=== PATIENT | male | born 1950 | race Caucasian/White ===

== ENCOUNTER → 2017-07-07 13:24 | Outpatient (CLI) | payer BC, SELFPAY ==
--- NOTE | 2017-07-08 14:00 | LEAS ---
Arterial Study - Arterial Study Arterial Study: This is a 66-year-old male with bilateral lower extremity intermittent claudication. The patient also has a history of hypertension, hyperlipidemia, and coronary artery disease. He is brought to the noninvasive vascular laboratory at this time, with a history of peripheral arterial occlusive disease. Doppler signal assessment was used to evaluate the pulses at ankle level bilaterally. The posterior tibial and dorsalis pedis pulses were triphasic bilaterally. Segmental limb pressures were obtained bilaterally. The right low thigh pressure was measured at 202 mmHg. The right calf pressure was measured at 171 mmHg. The right ankle pressure, as determined by posterior tibial pulse, was measured at 148 mmHg. The right ankle pressure, as determined by dorsalis pedis pulse, was measured at 120 mmHg. The left low thigh pressure was measured at 200 mmHg. The left calf pressure was measured at 170 mmHg. The left ankle pressure, as determined by posterior tibial pulse, was measured at 161 mmHg. The left ankle pressure, as determined by dorsalis pedis pulse, was measured at 145 mmHg. Pulse-volume recordings were obtained bilaterally and segmentally. Waveform amplitudes appeared to be satisfactory at all levels bilaterally, including low thigh, calf, and ankle levels. Resting ankle-brachial indices were calculated bilaterally. The resting right ankle-brachial index was calculated to be 1.10. The resting left ankle-brachial index was calculated to be 1.19. The patient was exercised on a treadmill at 2 mph and a 5% incline for 5 minutes. Ankle pressures were then obtained at intervals following cessation of exercise. 1 minute following cessation of exercise, the right ankle pressure was measured at __ mmHg, and the left ankle pressure was measured at 164 mmHg. 3 minutes following cessation of exercise, the right ankle pressure was measured at 160 mmHg, and the left ankle pressure was measured at 157 mmHg. Impression: Based upon the findings of this resting and exercise noninvasive lower extremity study, there is no evidence of significant atherosclerotic peripheral arterial occlusive disease in the lower extremities bilaterally. Triphasic waveforms were noted in ankle level bilaterally. Resting ankle-brachial indices were bilaterally normal. Following a period of exercise, ankle pressures augmented bilaterally, which is a normal physiological response. In summary, this represents a normal resting and exercise noninvasive lower extremity
--- NOTE | 2017-07-08 14:05 | LEAS_ITS ---
Arterial Study - Arterial Study Arterial Study: This is a 66-year-old male with bilateral lower extremity intermittent claudication. The patient also has a history of hypertension, hyperlipidemia, and coronary artery disease. He is brought to the noninvasive vascular laboratory at this time, with a history of peripheral arterial occlusive disease. Doppler signal assessment was used to evaluate the pulses at ankle level bilaterally. The posterior tibial and dorsalis pedis pulses were triphasic bilaterally. Segmental limb pressures were obtained bilaterally. The right low thigh pressure was measured at 202 mmHg. The right calf pressure was measured at 171 mmHg. The right ankle pressure, as determined by posterior tibial pulse, was measured at 148 mmHg. The right ankle pressure, as determined by dorsalis pedis pulse, was measured at 120 mmHg. The left low thigh pressure was measured at 200 mmHg. The left calf pressure was measured at 170 mmHg. The left ankle pressure, as determined by posterior tibial pulse, was measured at 161 mmHg. The left ankle pressure, as determined by dorsalis pedis pulse, was measured at 145 mmHg. Pulse-volume recordings were obtained bilaterally and segmentally. Waveform amplitudes appeared to be satisfactory at all levels bilaterally, including low thigh, calf, and ankle levels. Resting ankle-brachial indices were calculated bilaterally. The resting right ankle-brachial index was calculated to be 1.10. The resting left ankle- brachial index was calculated to be 1.19. The patient was exercised on a treadmill at 2 mph and a 5% incline for 5 minutes. Ankle pressures were then obtained at intervals following cessation of exercise. 1 minute following cessation of exercise, the right ankle pressure was measured at __ mmHg, and the left ankle pressure was measured at 164 mmHg. 3 minutes following cessation of exercise, the right ankle pressure was measured at 160 mmHg, and the left ankle pressure was measured at 157 mmHg. Impression: Based upon the findings of this resting and exercise noninvasive lower extremity study, there is no evidence of significant atherosclerotic peripheral arterial occlusive disease in the lower extremities bilaterally. Triphasic waveforms were noted in ankle level bilaterally. Resting ankle- brachial indices were bilaterally normal. Following a period of exercise, ankle pressures augmented bilaterally, which is a normal physiological response. In summary, this represents a normal resting and exercise noninvasive lower extremity
== END ==
DX: I73.9 Peripheral vascular disease, unspecified (principal)
CPT/HCPCS: 93924

== ENCOUNTER 2017-08-27 11:08 | Inpatient (IN) | payer BC, SELFPAY ==
[2017-08-27] VITALS (12 sets, daily range): BP systolic 124–187; BP diastolic 57–95; PULSE 85–110; RESP 15–20; TEMP 36.6–36.8; O2SAT 95–98; BMI 39.2; BMI 38.3
--- NOTE | 2017-08-27 11:13 | NURSING ---
NO OLD EKGS
--- NOTE | 2017-08-27 11:28 | EKG12_ITS ---
Test Reason : CP Blood Pressure : / mmHG Vent. Rate : 103 BPM Atrial Rate : 103 BPM P-R Int : 158 ms QRS Dur : 102 ms QT Int : 372 ms P-R-T Axes : 054 -34 090 degrees QTc Int : 487 ms Sinus tachycardia Left axis deviation Voltage criteria for left ventricular hypertrophy Abnormal ECG Confirmed by PARK RIVERA, KILLIAN ([id number]), slot editor LARISSA MINOR ([id number] on 08/30/2017 1:28:48 PM Referred By: KAYLA Confirmed By:KILLIAN NICK MD
--- NOTE | 2017-08-27 11:35 | RAD_ITS ---
STUDY: X-RAY CHEST REASON FOR EXAM: Male, 66 years old. Chest pain. TECHNIQUE: AP upright portable view. COMPARISON: None. FINDINGS: Calcified granuloma in the right lung base. No suspicious pulmonary nodules or infiltrates. There is no demonstrated pleural abnormality. Normal size heart. Normal mediastinum and vandana. Normal visualized pulmonary arteries. Normal visualized aortic arch and descending thoracic aorta. Normal visualized thoracic spine. Normal visualized ribs, clavicles, and shoulders. There is no demonstrated abnormality of the visualized soft tissue structures of the upper abdomen. RAD/Chest 1 View (Portable) IMPRESSION: No acute cardiopulmonary pathology. Electronically Signed: Robert Gagnon MD at 11:59 EDT , Service support ,
[2017-08-27 11:39] LABS: Absolute Lymphocyte Count 2.18 X10^3/ul (0.83-4.51); Absolute Neutrophil Count 3.2 X10^3/uL (2.0-7.7); Basophil# 0.06 X10^3/uL; Basophil% 0.9 % (0-1); Eosinophil# 0.61 X10^3/uL; Hematocrit 46.3 % (40-54); Hemoglobin 16.6 g/dl (13.0-16.5); Lymphocyte # 2.18 X10^3/ul (4.0); Lymphocyte % 32.2 % (19-41); Mean Corp Hgb Conc 35.9 g/gl (32-36); Mean Corpuscular Hgb 29.6 pg (27.0-32.0); Mean Corpuscular Volume 82.7 fL (80-94); Mean Platelet Vol. 10.3 fl (6.2-12.0); Monocyte# 0.69 X10^3/uL; Monocyte% 10.2 % (0-10); Neutrophil # 3.19 X10^3/uL (2.7-7.7); Platelet Count 196 K/mm3 (150-450); RBC Distribution Width CV 14.9 % (11.6-14.6); RBC Distribution Width SD 44.7 fl (35.1-43.9); White Blood Count 6.8 K/mm3 (4.4-11.0)
[2017-08-27 11:45] LABS: POSITIVE COUNT NO; POSITIVE DIFFERENTIAL NO; POSITIVE MORPHOLOGY NO
[2017-08-27 11:48] LABS: Anion Gap 9 (5-15); BUN 26 mg/dL (7-18); BUN/Creat Ratio 13.6 RATIO (10-20); Calcium,Total 8.9 mg/dL (8.5-10.1); Chloride 101 mmol/L (98-107); Creatinine, Serum 1.91 mg/dL (0.70-1.30); EST Glomerular Filtration Rate 38 mL/min (>60); Est Glom Filt Rate - Afr Amer 46 mL/min (>60); Estimated Creatinine Clearance 39.07 ml/min; Glucose 275 mg/dL (74-106); Potassium 3.6 mmol/L (3.5-5.1); Sodium Level 138 mmol/L (136-145)
--- NOTE | 2017-08-27 12:35 | ED.VISSUMM ---
- ER Visit Summary Date of Service: 08/27/17 Chief Complaint: Chest tightness History of Present Illness: The patient is a 66 M with history of coronary disease, hypertension and hypercholesterolemia who presents with chest tightness. This occurred this morning after he sneezed. He states he has a tight sensation in the middle of his chest with radiation to his left upper extremity and tingling in his left hand that was associated with diaphoresis, nausea and dyspnea. He has significant angina in 2015 requiring single-vessel bypass surgery for a proximal LAD lesion at the bifurcation of the main into the LAD and circumflex. He reports a significant weight gain over the last 6 months. He is from [place]. 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 He states he does not do anything strenuous. states he has a history of GERD. He reports no prior episode of discomfort like this. The pain does not radiate through to his back. He denies fever, chills night sweats. Denies ocular, visual auditory symptoms. He denies headache, weakness, paresthesia, anesthesia motor weakness. He has no other complaints please see written note. Review of systems otherwise negative. Physical Examination: Blood pressure 187/95 heart rate 106. He is obese with a BMI of 39.2. Pupils equal round reactive. Extra muscles intact. Nares patent. Posterior pharynx without erythema x-ray. Next supple. Trachea midline. No carotid bruit. Heart is regular without murmur, gallop or rub. Lungs are clear to auscultation. Abdomen is prominent with normal bowel sounds. There is no pain to palpation. There is 1-2+ pitting edema of the lower extremity. He denies orthopnea or PND. Test Results: EKG reveals a sinus rhythm rate of [address]-T wave changes. Computer is reading voltage criteria for LVH. He does have a left axis and suspect left anterior fascicular block. Chest x-ray portable reveals no acute process. CBC is unremarkable. Her panels marked for creatinine 1.9 and glucose 275. After informing patient of his results he states his creatinine ranges between 1.61.9. He has seen a precision jig grinder. He has never been told his blood sugars was elevated. His first troponin with less than 3 hours of chest tightness is less than 0.02. Emergency Department Course and Treatment: Patient did take aspirin at home. He was given nitroglycerin with resolution of his chest tightness. Cardiac workup was undertaken to evaluate patient's chest discomfort in light of his history of coronary disease and description. Treatment Plan: Consent for release of records from [place] was obtained for prior EKG for comparison. Hospitalist was paged for inpatient care. And further testing. Disposition: PCU Impression: 1. Midsternal chest tightness 2. End-stage renal disease, stage III 3. Hyperglycemia in non-diabetic patient 4. History of coronary disease status post single-vessel bypass surgery 5. History of hypertension 6. History of hypercholesterolemia This note was generated with [employer] dictation software. It may contain incorrect words, spelling, and punctuation that were not noted in review of the chart prior to signing ED Disposition - Plan for ED Patient: Chief Complaint: Chest Pain Referrals: [facility] Doctor,Out of [Primary Care Provider] -
--- NOTE | 2017-08-27 12:42 | ED.DCSUM_ITS ---
- ER Visit Summary Date of Service: 08/27/17 Chief Complaint: Chest tightness History of Present Illness: The patient is a 66 M with history of coronary disease, hypertension and hypercholesterolemia who presents with chest tightness. This occurred this morning after he sneezed. He states he has a tight sensation in the middle of his chest with radiation to his left upper extremity and tingling in his left hand that was associated with diaphoresis, nausea and dyspnea. He has significant angina in 2015 requiring single-vessel bypass surgery for a proximal LAD lesion at the bifurcation of the main into the LAD and circumflex. He reports a significant weight gain over the last 6 months. 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 He states he does not do anything strenuous. states he has a history of GERD. He reports no prior episode of discomfort like this. The pain does not radiate through to his back. He denies fever, chills night sweats. Denies ocular, visual auditory symptoms. He denies headache, weakness, paresthesia, anesthesia motor weakness. He has no other complaints please see written note. Review of systems otherwise negative. Physical Examination: Blood pressure 187/95 heart rate 106. He is obese with a BMI of 39.2. Pupils equal round reactive. Extra muscles intact. Nares patent. Posterior pharynx without erythema x-ray. Next supple. Trachea midline. No carotid bruit. Heart is regular without murmur, gallop or rub. Lungs are clear to auscultation. Abdomen is prominent with normal bowel sounds. There is no pain to palpation. There is 1-2+ pitting edema of the lower extremity. He denies orthopnea or PND. Test Results: EKG reveals a sinus rhythm rate of [address]-T wave changes. Computer is reading voltage criteria for LVH. He does have a left axis and suspect left anterior fascicular block. Chest x-ray portable reveals no acute process. CBC is unremarkable. Her panels marked for creatinine 1.9 and glucose 275. After informing patient of his results he states his creatinine ranges between 1.61.9. He has seen a manager stone. He has never been told his blood sugars was elevated. His first troponin with less than 3 hours of chest tightness is less than 0.02. Emergency Department Course and Treatment: Patient did take aspirin at home. He was given nitroglycerin with resolution of his chest tightness. Cardiac workup was undertaken to evaluate patient's chest discomfort in light of his history of coronary disease and description. Treatment Plan: Consent for release of records from [place] was obtained for prior EKG for comparison. Hospitalist was paged for inpatient care. And further testing. Disposition: PCU Impression: 1. Midsternal chest tightness 2. End-stage renal disease, stage III 3. Hyperglycemia in non-diabetic patient 4. History of coronary disease status post single-vessel bypass surgery 5. History of hypertension 6. History of hypercholesterolemia This note was generated with [employer] dictation software. It may contain incorrect words, spelling, and punctuation that were not noted in review of the chart prior to signing ED Disposition - Plan for ED Patient: Chief Complaint: Chest Pain Referrals: [facility] Doctor,Out of [Primary Care Provider] -
--- NOTE | 2017-08-27 13:24 | NURSING ---
CALLED [facility] IN [place] FOR AN OLD EKG. TALKED TO DARRION.
--- NOTE | 2017-08-27 13:30 | PCM.HP.STD ---
Problem List (1) Chronic kidney disease Status: Chronic (2) CAD (coronary artery disease) Status: Chronic (3) HTN (hypertension) Status: Chronic (4) HLD (hyperlipidemia) Status: Chronic (5) GERD (gastroesophageal reflux disease) Status: Chronic History of Present Illness Date of Admission: 08/27/17 Chief Complaint: Chest pressure/tightness The patient is a 66 year old M who presents to the Emergency Room with complaints of chest tightness and pressure which has been intermittent for the past 2-3 days with an episode of increased pressure around 10am this morning. Patient states this morning his pain was a 9/10 and radiated down left arm. This occurred while he was in the car driving. He describes associated clammy and shortness of breath. Pain lasted approximately 1 minute. Patient denies increased pain with exertion. He states he is chronically short of breath both while at rest and with exertion. He states this initially began after his bypass surgery in 2014. He denies smoking history. 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 He has a past medical history of single-vessel bypass in 2015, hypertension, hyperlipidemia, GERD, chronic kidney disease stage III. Patient's pain is currently 4/10 and states it feels like a weight is on his chest. He follows with his single needle tufting machine operator in [place] and also sees nephrology. Past Medical History Past Medical History (Chronic Problems): Chronic Problems Chronic kidney disease (Chronic) CAD (coronary artery disease) (Chronic) HTN (hypertension) (Chronic) HLD (hyperlipidemia) (Chronic) GERD (gastroesophageal reflux disease) (Chronic) Allergies No Known Allergies Allergy (Verified 08/27/17 11:08) Home Medications: Ambulatory Orders Medication Instructions Recorded Aspirin [Aspirin, Baby] 81 mg PO DAILY@0800 08/27/17 Atorvastatin Calcium [Lipitor] 40 mg PO DAILY 08/27/17 Hydrochlorothiazide [Hctz] 25 mg PO DAILY 08/27/17 Metoprolol Tartrate [Lopressor 12.5 mg PO DAILY 08/27/17 (beta mina)] Omeprazole [Omeprazole] 40 mg PO DAILY 08/27/17 Surgical History: arthroscopy, knee - Left, - - Bypass, hemorrhoid surgery, cataract, elbow surgery Psychiatric History: No pertinent psych hx Lives: Spouse/ Significant Other Smoking Status: Never smoker Alcohol: None Drugs: None - *Family History Maternal History Items: No pertinent history - Alive and well. Paternal History Items: Cancer - colon Review of Systems Constitutional: Reports: Weight Change - Weight gain over the past few months.. Denies: Chills, Fever HEENT: Denies: Head Aches, Sinus Congestion, Sinus Drainage Cardiovascular: Reports: Edema - Mild BLLE. Denies: Chest Pressure, Chest Tightness, Palpitations, Syncope Respiratory: Reports: Shortness of Breath, Shortness of breath upon exertion. Denies: Cough, Sputum production, Wheezing Gastrointestinal: Denies: Abdominal Pain, Constipation, Diarrhea, Nausea, Vomiting Genitourinary: Denies: Dysuria Musculoskeletal: Denies: Joint Pain, Joint Tenderness Skin: Denies: Rash, Wounds Neurological: Denies: Numbness, Tingling, Focal weakness Psychiatric: Denies: Anxiety, Depression, Homicidal Ideations, Suicidal Ideations Hematologic/ Lymphatic: Denies: Easy Bruising, Easy Bleeding VTE Information - Inpt Only VTE Present on Admission: No VTE Mechan Device Prophylaxis: None VTE Pharm Prophylaxis ordered?: Yes - Physical Exam General: Alert, Oriented x3, Cooperative, No apparent distress HEENT: Atraumatic, PERRLA, EOMI, Normocephalic Neck: Supple, No JVD, Negative Carotid Bruits Lungs: Clear to auscultation, Diminished Cardiovascular: Regular rate, Regular Rhythm, Normal S1, Normal S2, No murmurs Abdomen: Bowel Sounds Present, Soft, Non Tender, Non-Distended, Obese Extremities: No clubbing, No cyanosis, Edema - BLLE, non-pitting Skin: No rashes, No breakdown Musculoskeletal: No Tenderness to Palpation of Joints or Extremities Neurological: Cranial nerves II-XII grossly intact, Neuro grossly intact Psych/Mental Status: Normal Affect, Appropriate Vital Signs Temp Pulse Resp BP Pulse Ox 98.3 F 96 15 148/93 H 96 08/27/17 11:09 08/27/17 13:02 08/27/17 13:02 08/27/17 13:02 08/27/17 12:53 Oxygen Delivery Method Room Air Weight: 120.3 kg Body Mass Index (BMI) 39.2 Laboratory Tests Past 24 Hrs 08/27/17 08/27/17 11:15 11:15 WBC 6.8 RBC 5.60 Hgb 16.6 H Hct 46.3 MCV 82.7 MCH 29.6 MCHC 35.9 RDW 14.9 H RDW Differential 44.7 H Plt Count 196 MPV 10.3 Immature Gran % (Auto) 0.700 Neut % (Auto) 47.0 Lymph % (Auto) 32.2 Morton % (Auto) 10.2 H Eos % (Auto) 9.0 H Baso % (Auto) 0.9 Absolute Neuts (auto) 3.2 Absolute Lymphs (auto) 2.18 Total Counted Not Reportable Sodium 138 Potassium 3.6 Chloride 101 Carbon Dioxide 28.0 Anion Gap 9 BUN 26 H Creatinine 1.91 H Estim Creat Clear Calc 39.07 Est GFR (MDRD) Af Amer 46 L Est GFR (MDRD) Non-Af 38 L BUN/Creatinine Ratio 13.6 Glucose 275 H Calcium 8.9 Troponin I < 0.02 Assessment/Plan 1. Chest pressure/chest tightness-EKG in ER with T wave inversion. Dr. Paz consulted. Trend enzymes. Gentle IVF overnight. Stress test ordered pending enzymes. Obtain echo. Morphine as needed for pain. Repeat EKG if new onset or increase in CP. 2. CAD s/p single vessel bypass 2014- continue asa, statin, beta mina. Follows with single needle tufting machine operator in [place]. 3. CKD stage III-baseline creatinine 1.6-1.9. Gently IVF. Trend BMP. 4. HTN- stable, continue current regimen. 5. HLD- continue statin. 6. Elevated glucose- Glucose on admission 275. HA1C pending. Nutrition/dietitian consult for diabetes education. Accuchek ACHS with SSI novolog. 7. GERD- continue PPI. DVT prophylaxis- Heparin SC This patient was seen by Dea Boyd NP-Gianluca under the supervision of Dr. Simpson.
--- NOTE | 2017-08-27 13:33 | NURSING ---
PATIENT GOES TO DR DOBSON, [facility] [phone] CLOSED TODAY
--- NOTE | 2017-08-27 13:40 | HP.PCM_ITS ---
Problem List (1) Chronic kidney disease Status: Chronic (2) CAD (coronary artery disease) Status: Chronic (3) HTN (hypertension) Status: Chronic (4) HLD (hyperlipidemia) Status: Chronic (5) GERD (gastroesophageal reflux disease) Status: Chronic History of Present Illness Date of Admission: 08/27/17 Chief Complaint: Chest pressure/tightness The patient is a 66 year old M who presents to the Emergency Room with complaints of chest tightness and pressure which has been intermittent for the past 2-3 days with an episode of increased pressure around 10am this morning. Patient states this morning his pain was a 9/10 and radiated down left arm. This occurred while he was in the car driving. He describes associated clammy and shortness of breath. Pain lasted approximately 1 minute. Patient denies increased pain with exertion. He states he is chronically short of breath both while at rest and with exertion. He states this initially began after his bypass surgery in 2014. He denies smoking history. 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 He has a past medical history of single-vessel bypass in 2015, hypertension, hyperlipidemia, GERD, chronic kidney disease stage III. Patient's pain is currently 4/10 and states it feels like a weight is on his chest. He follows with his networker in [place] and also sees nephrology. Past Medical History Past Medical History (Chronic Problems): Chronic Problems Chronic kidney disease (Chronic) CAD (coronary artery disease) (Chronic) HTN (hypertension) (Chronic) HLD (hyperlipidemia) (Chronic) GERD (gastroesophageal reflux disease) (Chronic) Allergies No Known Allergies Allergy (Verified 08/27/17 11:08) Home Medications: Ambulatory Orders Medication Instructions Recorded Aspirin [Aspirin, Baby] 81 mg PO DAILY@0800 08/27/17 Atorvastatin Calcium [Lipitor] 40 mg PO DAILY 08/27/17 Hydrochlorothiazide [Hctz] 25 mg PO DAILY 08/27/17 Metoprolol Tartrate [Lopressor 12.5 mg PO DAILY 08/27/17 (beta mina)] Omeprazole [Omeprazole] 40 mg PO DAILY 08/27/17 Surgical History: arthroscopy, knee - Left, - - Bypass, hemorrhoid surgery, cataract, elbow surgery Psychiatric History: No pertinent psych hx Lives: Spouse/ Significant Other Smoking Status: Never smoker Alcohol: None Drugs: None - *Family History Maternal History Items: No pertinent history - Alive and well. Paternal History Items: Cancer - colon Review of Systems Constitutional: Reports: Weight Change - Weight gain over the past few months.. Denies: Chills, Fever HEENT: Denies: Head Aches, Sinus Congestion, Sinus Drainage Cardiovascular: Reports: Edema - Mild BLLE. Denies: Chest Pressure, Chest Tightness, Palpitations, Syncope Respiratory: Reports: Shortness of Breath, Shortness of breath upon exertion. Denies: Cough, Sputum production, Wheezing Gastrointestinal: Denies: Abdominal Pain, Constipation, Diarrhea, Nausea, Vomiting Genitourinary: Denies: Dysuria Musculoskeletal: Denies: Joint Pain, Joint Tenderness Skin: Denies: Rash, Wounds Neurological: Denies: Numbness, Tingling, Focal weakness Psychiatric: Denies: Anxiety, Depression, Homicidal Ideations, Suicidal Ideations Hematologic/ Lymphatic: Denies: Easy Bruising, Easy Bleeding VTE Information - Inpt Only VTE Present on Admission: No VTE Mechan Device Prophylaxis: None VTE Pharm Prophylaxis ordered?: Yes - Physical Exam General: Alert, Oriented x3, Cooperative, No apparent distress HEENT: Atraumatic, PERRLA, EOMI, Normocephalic Neck: Supple, No JVD, Negative Carotid Bruits Lungs: Clear to auscultation, Diminished Cardiovascular: Regular rate, Regular Rhythm, Normal S1, Normal S2, No murmurs Abdomen: Bowel Sounds Present, Soft, Non Tender, Non-Distended, Obese Extremities: No clubbing, No cyanosis, Edema - BLLE, non-pitting Skin: No rashes, No breakdown Musculoskeletal: No Tenderness to Palpation of Joints or Extremities Neurological: Cranial nerves II-XII grossly intact, Neuro grossly intact Psych/Mental Status: Normal Affect, Appropriate Vital Signs Temp Pulse Resp BP Pulse Ox 98.3 F 96 15 148/93 H 96 08/27/17 11:09 08/27/17 13:02 08/27/17 13:02 08/27/17 13:02 08/27/17 12:53 Oxygen Delivery Method Room Air Weight: 120.3 kg Body Mass Index (BMI) 39.2 Laboratory Tests Past 24 Hrs 08/27/17 08/27/17 11:15 11:15 WBC 6.8 RBC 5.60 Hgb 16.6 H Hct 46.3 MCV 82.7 MCH 29.6 MCHC 35.9 RDW 14.9 H RDW Differential 44.7 H Plt Count 196 MPV 10.3 Immature Gran % (Auto) 0.700 Neut % (Auto) 47.0 Lymph % (Auto) 32.2 Richardson % (Auto) 10.2 H Eos % (Auto) 9.0 H Baso % (Auto) 0.9 Absolute Neuts (auto) 3.2 Absolute Lymphs (auto) 2.18 Total Counted Not Reportable Sodium 138 Potassium 3.6 Chloride 101 Carbon Dioxide 28.0 Anion Gap 9 BUN 26 H Creatinine 1.91 H Estim Creat Clear Calc 39.07 Est GFR (MDRD) Af Amer 46 L Est GFR (MDRD) Non-Af 38 L BUN/Creatinine Ratio 13.6 Glucose 275 H Calcium 8.9 Troponin I < 0.02 Assessment/Plan 1. Chest pressure/chest tightness-EKG in ER with T wave inversion. Dr. Paz consulted. Trend enzymes. Gentle IVF overnight. Stress test ordered pending enzymes. Obtain echo. Morphine as needed for pain. Repeat EKG if new onset or increase in CP. 2. CAD s/p single vessel bypass 2014- continue asa, statin, beta mina. Follows with networker in [place]. 3. CKD stage III-baseline creatinine 1.6-1.9. Gently IVF. Trend BMP. 4. HTN- stable, continue current regimen. 5. HLD- continue statin. 6. Elevated glucose- Glucose on admission 275. HA1C pending. Nutrition/ dietitian consult for diabetes education. Accuchek ACHS with SSI novolog. 7. GERD- continue PPI. DVT prophylaxis- Heparin SC This patient was seen by Dea Boyd NP-Gianluca under the supervision of Dr. Simpson.
--- NOTE | 2017-08-27 14:07 | ECHOCS_ITS ---
Reason For Study: CHEST PAIN Procedure This was a 2D Doppler, Color Flow transthoracic echocardiogram. The study was technically difficult. Due to body habitus. Contrast injection was performed. Exam performed portable in patient room. Left Ventricle Normal LV size. Left ventricular systolic function is normal. The estimated ejection fraction is 60 %. Transmitral diastolic flow velocities suggest mild (stage 1) diastolic dysfunction (reversed pattern). No regional wall motion abnormalities noted. Right Ventricle Normal RV size. Normal systolic function. Atria Normal left atrium. Normal right atrium. Mitral Valve Normal mitral valve. Tricuspid Valve Normal tricuspid valve. Mild (1+) tricuspid valve insufficiency. Pulmonary artery systolic pressure is 32 mmHg. Aortic Valve The aortic valve is not well visualized. Pulmonic Valve The pulmonic valve is not well visualized. Great Vessels Normal aortic root. The pulmonary artery is normal size. Normal inferior vena cava. Pericardium/Pleural No pericardial effusion. Medication Diluted definity 3.0ml given slow IV push to enhance endocardial definition. MMode/2D Measurements & Calculations LVIDd: 4.4 cm IVSd: 1.1 cm Ao root diam: 3.0 cm LVIDs: 2.7 cm LVPWd: 1.1 cm LA dimension: 4.3 cm FS: 38.5 % LAV(MOD-bp): 53.7 ml LAV(MOD-bp) Indexed: 23.1 ml/m2 LA A4 area: 19.5 cm2 LAV(MOD-sp2): 47.0 ml LAV(MOD-sp4): 61.5 ml Time Measurements MV dec time: 0.28 sec Doppler Measurements & Calculations MV E max joel: 74.9 cm/sec Lat Peak E' Joel: 9.8 cm/sec Med Peak E' Joel: 7.6 cm/sec MV A max joel: 96.3 cm/sec E/E' lat: 7.6 E/E' med: 9.8 MV E/A: 0.78 Ao V2 max: 124.1 cm/sec PA V2 max: 121.1 cm/sec TR max joel: 263.5 cm/sec Ao max P.2 mmHg TR max P.8 mmHg Interpretation Summary Normal LV size. Left ventricular systolic function is normal. The estimated ejection fraction is 60 %. Transmitral diastolic flow velocities suggest mild (stage 1) diastolic dysfunction (reversed pattern). Mild (1+) tricuspid valve insufficiency. Pulmonary artery systolic pressure is 32 mmHg. Contrast injection was performed. The study was technically limited. Ordering Physician: Viktor Simpson Referring Physician: SIMONE DODSON Performed By: Stacy Garcia RDCS, RVT
[2017-08-27] MEDS: 0.9% Normal Saline 1,000 ML 100 ML IV ×2 (14:30→22:21)
--- NOTE | 2017-08-27 15:44 | NURSING ---
Nutritional supplements not ordered even though prompted. Due to pt having weight gain since February and no loss of appetite
[2017-08-27 17:30] LABS: Bedside Glucose 218 mg/dL (70-110)
--- NOTE | 2017-08-27 18:38 | PCM.CONS.C ---
Reason for Consult Date of Consultation: 08/27/17 Reason for Consultation: Chest pressure. History of Present Illness: The patient is a 66 year old M who presents to the Emergency Room with complaints of chest tightness and pressure which has been intermittent for the past 2-3 days with an episode of increased pressure around 10am this morning. Patient states this morning his pain was a 9/10 and radiated down left arm. This occurred while he was in the car driving. He describes associated clammy and shortness of breath. Pain lasted approximately 1 minute. Patient denies increased pain with exertion. He states he is chronically short of breath both while at rest and with exertion. He states this initially began after his bypass surgery in 2014. He denies smoking history. 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 He has a past medical history of single-vessel bypass in 2014, hypertension, hyperlipidemia, GERD, chronic kidney disease stage III. It appears that his surgery was admitted CAB procedure. This was presumably with a left internal mammary artery to the left anterior descending artery. He was administered sublingual nitroglycerin as well as morphine in the emergency room and his pain has dissipated. His electric cardiogram in the emergency room had demonstrated T-wave inversions in lead I and aVL. Past Medical History Allergies/Adverse Reactions: Allergies No Known Allergies Allergy (Verified 08/27/17 11:08) Home Medications: Ambulatory Orders Medication Instructions Recorded Aspirin [Aspirin, Baby] 81 mg PO DAILY@0800 08/27/17 Atorvastatin Calcium [Lipitor] 40 mg PO DAILY 08/27/17 Hydrochlorothiazide [Hctz] 25 mg PO DAILY 08/27/17 Metoprolol Tartrate [Lopressor 12.5 mg PO BID 08/27/17 (beta mina)] Omeprazole [Omeprazole] 40 mg PO DAILY 08/27/17 Past Medical History (Chronic Problems): Chronic Problems Chronic kidney disease (Chronic) CAD (coronary artery disease) (Chronic) HTN (hypertension) (Chronic) HLD (hyperlipidemia) (Chronic) GERD (gastroesophageal reflux disease) (Chronic) Surgical History: arthroscopy, knee - Left, coronary bypass surgery, - - Bypass, hemorrhoid surgery, cataract, elbow surgery Psychiatric History: No pertinent psych hx - *Family History Maternal History Items: No pertinent history - Alive and well. Paternal History Items: Cancer - colon Lives: Spouse/ Significant Other Smoking Status: Never smoker Alcohol: None Drugs: None Review of Systems - Review of Systems General: Denies: Fever, Night Sweats, Fatigue Cardiovascular: Reports: Chest Discomfort at Rest, Chest Tightness, Shortness of Breath. Denies: Chest Discomfort, Orthopnea, PND, Peripheral Edema, Palpitations, Lightheadedness, Dizziness, Near Syncope, Syncope Respiratory: Denies: Cough, Sputum Production, Hemoptysis Gastrointestinal: Denies: Hematemesis, Hematochezia, Melena Genitourinary: Denies: Dysuria, Hematuria Skin: Denies: Rash Subjectve: Pleasant gentleman in no apparent distress. Objective: Vital Signs Temp Pulse Resp BP Pulse Ox 97.9 F 87 16 127/57 H 95 08/27/17 15:05 08/27/17 15:05 08/27/17 15:05 08/27/17 15:05 08/27/17 15:05 Oxygen Delivery Method Room Air Weight: 259 lb 7.745 oz Body Mass Index (BMI) 38.3 Intake and Output for Last 24 Hours 08/25/17 08/26/17 08/27/17 23:59 23:59 23:59 Intake Total 480 / 480 Balance 480 / 480 General: Awake, Alert, Oriented x 3, Obese HEENT: PERRL, EOMI, Sclera Non Icteric Neck: Supple, Good ROM, No Lymph Node Enlargement Lungs: Clear to auscultation Cardiovascular: Regular Rhythm, Normal S1, Normal S2, No Murmurs, No Rubs, No Gallops Vascular: No Carotid Bruits, Normal Femoral Pulses, Normal Radial Pulses, Normal Dorsalis Pedal Pulse, Normal Posterior Tibial Pulses Abdomen: Bowel Sounds Present, Soft, Non Tender, No HSM, No Organomegaly Extremities: No Cyanosis, No Clubbing, No edema Neurological: No Focal Motor or Sensory Deficit 08/27/17 16:23: Troponin I < 0.02 Rhythm: EKG: Normal sinus rhythm with T-wave inversion in 1 and aVL. ECHO: Preserved ejection fraction of 60% with stage I diastolic dysfunction. Assessment/Plan 1. Chest pain. He presents with chest discomfort which is concerning for angina. He does have risk factors of obesity previous coronary bypass surgery hypertension and with his size as well as his EKG changes at baseline I would prefer us to utilize any invasive approach rather than stress testing. My suspicion is that the false positivity to be high with stress testing. Approach using the left radial route will be considered. I have discussed the above with him and his they understand and agree to proceed. He will be started on clopidogrel 75 mg a day in addition to his beta-mina and high intensity statin and aspirin. 2. Hypertension He appears to have elevated blood pressure and my recommendation at this time would be to continue on his beta-mina. 3. Obesity and metabolic syndrome. He appears to have evidence of metabolic syndrome. Diet and exercise have been emphasized and he will also be continued on high intensity statin. Thank you for allowing me to participate in the care of your patient. Please don't hesitate to call if any issues arise
--- NOTE | 2017-08-27 18:54 | NURSING ---
Reviewed and agreed on all charting with Kevyn Garcia RN
[2017-08-27] MEDS: Clopidogrel Bisulfate 300 MG Tablet PO (22:14)
[2017-08-27 23:06] LABS: Bedside Glucose 194 mg/dL (70-110)
[2017-08-28] VITALS (12 sets, daily range): BP systolic 128–146; BP diastolic 72–82; PULSE 76–102; RESP 16–18; TEMP 36.5–36.9; O2SAT 95–98
[2017-08-28 07:05] LABS: Bedside Glucose 196 mg/dL (70-110)
[2017-08-28 08:01] LABS: Anion Gap 8 (5-15); BUN 23 mg/dL (7-18); BUN/Creat Ratio 13.5 RATIO (10-20); Calcium,Total 8.1 mg/dL (8.5-10.1); Chloride 105 mmol/L (98-107); Creatinine, Serum 1.71 mg/dL (0.70-1.30); EST Glomerular Filtration Rate 43 mL/min (>60); Est Glom Filt Rate - Afr Amer 52 mL/min (>60); Estimated Creatinine Clearance 43.64 ml/min; Glucose 182 mg/dL (74-106); Potassium 3.6 mmol/L (3.5-5.1); Sodium Level 139 mmol/L (136-145)
[2017-08-28] MEDS: Aspirin 81 MG TAB.CHEW PO (08:16)
[2017-08-28] MEDS: Pantoprazole Sodium 40 MG Tablet PO (08:20)
[2017-08-28] MEDS: Atorvastatin Calcium 40 MG Tablet PO (08:20)
[2017-08-28] MEDS: Clopidogrel Bisulfate 75 MG Tablet PO (08:20)
[2017-08-28] MEDS: 0.9% Normal Saline 1,000 ML 100 ML IV ×2 (08:21→18:49)
--- NOTE | 2017-08-28 08:44 | PN.CARD_ITS ---
Subjectve: Patient seen and evaluated Objective: Vital Signs Temp Pulse Resp BP Pulse Ox 97.7 F L 76 16 137/72 H 95 08/28/17 03:03 08/28/17 07:09 08/28/17 03:03 08/28/17 03:03 08/28/17 03:03 Oxygen Delivery Method Room Air Weight: 259 lb 7.745 oz Body Mass Index (BMI) 38.3 Intake and Output for Last 24 Hours 08/26/17 08/27/17 08/28/17 23:59 23:59 23:59 Intake Total 948 / 948 1463 / 1463 Balance 948 / 948 1463 / 1463 General: Awake, Alert, Oriented x 3 HEENT: PERRL, EOMI, Sclera Non Icteric Neck: Supple, Good ROM, No Lymph Node Enlargement Lungs: Clear to auscultation Cardiovascular: Regular Rhythm, Normal S1, Normal S2, No Murmurs, No Rubs, No Gallops Vascular: No Carotid Bruits, Normal Femoral Pulses, Normal Radial Pulses, Normal Dorsalis Pedal Pulse, Normal Posterior Tibial Pulses Abdomen: Bowel Sounds Present, Soft, Non Tender, No HSM, No Organomegaly Extremities: No Cyanosis, No Clubbing, No edema Neurological: No Focal Motor or Sensory Deficit 08/27/17 16:23: Troponin I < 0.02 08/27/17 19:41: Troponin I < 0.02 08/28/17 01:16: Troponin I < 0.02 08/28/17 07:25: Sodium 139, Potassium 3.6, Chloride 105, Carbon Dioxide 26.0, Anion Gap 8, BUN 23 H, Creatinine 1.71 H, Est GFR (MDRD) Af Amer 52 L, Est GFR ( MDRD) Non-Af 43 L, BUN/Creatinine Ratio 13.5, Glucose 182 H, Calcium 8.1 L Rhythm: EKG: ECHO: Stress Test: Cardiac Cath: PCI: CT Surgery: Holter monitor: EPS: PPM: CXR: Chest CT Scan: Medical Necessity - Tobacco Use Smoking Status: Never smoker Assessment/Plan 1. Chest pain. He presents with chest discomfort which is concerning for angina. He does have risk factors of obesity previous coronary bypass surgery hypertension and with his size as well as his EKG changes at baseline I would prefer us to utilize any invasive approach rather than stress testing. My suspicion is that the false positivity to be high with stress testing. Approach using the left radial route will be considered. I have discussed the above with him and his they understand and agree to proceed. He will be started on clopidogrel 75 mg a day in addition to his beta-mina and high intensity statin and aspirin. Doing well at this time. Will continue to hydrate and plan for cath Wednesday. 2. Hypertension He appears to have elevated blood pressure and my recommendation at this time would be to continue on his beta-mina. 3. Obesity and metabolic syndrome. He appears to have evidence of metabolic syndrome. Diet and exercise have been emphasized and he will also be continued on high intensity statin. Thank you for allowing me to participate in the care of your patient. Please don't hesitate to call if any issues arise
[2017-08-28 12:36] LABS: Bedside Glucose 236 mg/dL (70-110)
--- NOTE | 2017-08-28 13:23 | NURSING ---
pt upset due to misunderstood getting insulin coverage. pt was checked at 1101 and glucose level was 236 pt was covered with 4 units of insulin. pt tray came to room, pt called out to say needed sugar checked and insulin given, GOLD STAMPER called this nurse to advise pt requests. this nurse told GOLD STAMPER pt was already covered. this nurse rounded and pt very upset this nurse was not in to give insulin. this nurse explained to pt the blood sugar was already checked in the 11 o clock hour and insulin given and pt is okay to eat. pt still upset and refused lunch tray.
--- NOTE | 2017-08-28 15:07 | CASEMGMT ---
See attached ironworker. Met face to face with patient and his earlier this am. PCP name is Dr. Riccardo Landon. Has a kidney doctor: Dr. Conroy Cardiology: Dr. Bal. Lives in [place]. 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 Living in an in [place]. Denies any current needs and doesn't anticipate any at discharge. Instructed case management will remain available should any needs arise. Nilda Bar RN, CCM.
--- NOTE | 2017-08-28 15:09 | PN_ITS ---
Subjective: Patient seen and examined. Complains of intermittent chest burning sensation which is increased with deep breaths and coughing, sneezing. Denies shortness of breath. To undergo cardiac catheterization on Wednesday. Patient denies questions or concerns. - Physical Exam General: Alert, Oriented x3, Cooperative, No apparent distress HEENT: Atraumatic, PERRLA, EOMI, Normocephalic Neck: Supple, No JVD, Negative Carotid Bruits Lungs: Clear to auscultation, Diminished Cardiovascular: Regular rate, Regular Rhythm, Normal S1, Normal S2, No murmurs Abdomen: Bowel Sounds Present, Soft, Non Tender, Non-Distended, Obese Extremities: No clubbing, No cyanosis, Capillary Refill Less than 3 Seconds, Edema - BLLE nonpitting Skin: No rashes, No breakdown Musculoskeletal: No Tenderness to Palpation of Joints or Extremities Neurological: Cranial nerves II-XII grossly intact, Neuro grossly intact Psych/Mental Status: Normal Affect, Appropriate Vital Signs Temp Pulse Resp BP Pulse Ox 98.1 F 95 16 132/82 H 95 08/28/17 09:03 08/28/17 11:27 08/28/17 09:03 08/28/17 09:03 08/28/17 09:03 Oxygen Delivery Method Room Air Weight: 117.7 kg Body Mass Index (BMI) 38.3 Intake and Output for Last 24 Hours 08/26/17 08/27/17 08/28/17 23:59 23:59 23:59 Intake Total 948 / 948 3 / 1923 Balance 948 / 948 1922 / 192 Laboratory Tests Past 24 Hrs 08/27/17 08/27/17 08/28/17 16:23 19:41 01:16 Sodium Potassium Chloride Carbon Dioxide Anion Gap BUN Creatinine Estim Creat Clear Calc Est GFR (MDRD) Af Amer Est GFR (MDRD) Non-Af BUN/Creatinine Ratio Glucose Calcium Troponin I < 0.02 < 0.02 < 0.02 08/28/17 07:25 Sodium 139 Potassium 3.6 Chloride 105 Carbon Dioxide 26.0 Anion Gap 8 BUN 23 H Creatinine 1.71 H Estim Creat Clear Calc 43.64 Est GFR (MDRD) Af Amer 52 L Est GFR (MDRD) Non-Af 43 L BUN/Creatinine Ratio 13.5 Glucose 182 H Calcium 8.1 L Troponin I POC Glucose 08/28/17 08/28/17 08/27/17 10:59 06:51 22:11 POC Glucose 236 H 196 H 194 H 08/27/17 16:47 POC Glucose 218 H Medical Necessity - Tobacco Use Smoking Status: Never smoker Assessment/Plan 1. Chest pressure/chest tightness-EKG in ER with T wave inversion. Dr. Paz consulted. Troponin negative. Echo shows EF 60%, mild stage I diastolic dysfunction, mild tricuspid valve insufficiency, pulmonary artery systolic pressure 32 mmHg. Patient will undergo cardiac catheterization Wednesday, . Continue aspirin, statin, Plavix, beta-mina. Continue morphine and nitro as needed for chest pain. 2. CAD s/p single vessel bypass 2014- continue asa, statin, beta mina. Follows with associate marketing manager in [place]. 3. CKD stage III-baseline creatinine 1.6-1.9. Gently IVF. Trend BMP. Creatinine currently 1.7. No acute kidney injury. 4. HTN- stable, continue current regimen. 5. HLD- continue statin. 6. Elevated glucose- Glucose on admission 275. HA1C 8.0. Nutrition/dietitian consult for diabetes education. Accuchek ACHS with SSI novolog. Recommend patient be discharged on Jardiance 10 mg once daily with further adjustment as outpatient. 7. GERD- continue PPI. DVT prophylaxis- Heparin SC This patient was seen by MARISOL Santiago under the supervision of Dr. Simpson.
[2017-08-28 17:31] LABS: Bedside Glucose 143 mg/dL (70-110)
[2017-08-28] MEDS: Metoprolol Tartrate 25 MG Tablet 12.5 MG PO (21:03)
[2017-08-28] MEDS: Acetaminophen 325 MG Tablet 650 MG PO (21:11)
[2017-08-28 21:15] LABS: Bedside Glucose 177 mg/dL (70-110)
[2017-08-29] VITALS (14 sets, daily range): BP systolic 134–159; BP diastolic 74–82; PULSE 72–90; RESP 16–18; TEMP 36.2–36.8; O2SAT 95–98
[2017-08-29] MEDS: 0.9% Normal Saline 1,000 ML 100 ML IV ×3 (04:57→23:57)
[2017-08-29 06:51] LABS: Bedside Glucose 154 mg/dL (70-110)
[2017-08-29 08:19] LABS: Anion Gap 9 (5-15); BUN 23 mg/dL (7-18); BUN/Creat Ratio 15.1 RATIO (10-20); Calcium,Total 8.2 mg/dL (8.5-10.1); Chloride 107 mmol/L (98-107); Creatinine, Serum 1.52 mg/dL (0.70-1.30); EST Glomerular Filtration Rate 49 mL/min (>60); Est Glom Filt Rate - Afr Amer 60 mL/min (>60); Glucose 169 mg/dL (74-106); Potassium 3.7 mmol/L (3.5-5.1); Sodium Level 141 mmol/L (136-145)
[2017-08-29] MEDS: Atorvastatin Calcium 40 MG Tablet PO (08:25)
[2017-08-29] MEDS: Aspirin 81 MG TAB.CHEW PO (08:25)
[2017-08-29] MEDS: Metoprolol Tartrate 25 MG Tablet 12.5 MG PO ×2 (08:26→22:08)
[2017-08-29] MEDS: Pantoprazole Sodium 40 MG Tablet PO (08:26)
[2017-08-29] MEDS: Clopidogrel Bisulfate 75 MG Tablet PO (08:26)
[2017-08-29] MEDS: Empagliflozin 10 MG Tablet PO (09:33)
--- NOTE | 2017-08-29 10:02 | PN.CARD_ITS ---
Subjectve: Patient was seen and evaluated. Has had no complaints since admission. Continues to be hydrated. Objective: Vital Signs Temp Pulse Resp BP Pulse Ox 98.2 F 79 16 138/80 H 95 08/29/17 08:35 08/29/17 08:35 08/29/17 08:35 08/29/17 08:35 08/29/17 08:35 Oxygen Delivery Method Room Air Intake and Output for Last 24 Hours 08/27/17 08/28/17 08/29/17 23:59 23:59 23:59 Intake Total 2247 / 4170 615 / 615 Balance 2247 / 4170 615 / 615 General: Awake, Alert, Oriented x 3 HEENT: PERRL, EOMI, Sclera Non Icteric Neck: Supple, Good ROM, No Lymph Node Enlargement Lungs: Clear to auscultation Cardiovascular: Regular Rhythm, Normal S1, Normal S2, No Murmurs, No Rubs, No Gallops Vascular: No Carotid Bruits, Normal Femoral Pulses, Normal Radial Pulses, Normal Dorsalis Pedal Pulse, Normal Posterior Tibial Pulses Abdomen: Bowel Sounds Present, Soft, Non Tender, No HSM, No Organomegaly Extremities: No Cyanosis, No Clubbing, No edema Neurological: No Focal Motor or Sensory Deficit 08/29/17 06:05: Sodium 141, Potassium 3.7, Chloride 107, Carbon Dioxide 25.0, Anion Gap 9, BUN 23 H, Creatinine 1.52 H, Est GFR (MDRD) Af Amer 60, Est GFR ( MDRD) Non-Af 49 L, BUN/Creatinine Ratio 15.1, Glucose 169 H, Calcium 8.2 L Rhythm: EKG: ECHO: Stress Test: Cardiac Cath: PCI: CT Surgery: Holter monitor: EPS: PPM: CXR: Chest CT Scan: Medical Necessity - Tobacco Use Smoking Status: Never smoker Assessment/Plan 1. Chest pain. He presents with chest discomfort which is concerning for angina. He does have risk factors of obesity previous coronary bypass surgery hypertension and with his size as well as his EKG changes at baseline I would prefer us to utilize any invasive approach rather than stress testing. My suspicion is that the false positivity to be high with stress testing. Approach using the left radial route will be considered. I have discussed the above with him and his they understand and agree to proceed. He will be started on clopidogrel 75 mg a day in addition to his beta-mina and high intensity statin and aspirin. Doing well at this time. Will continue to hydrate and plan for cath Wednesday. 2. Hypertension He appears to have elevated blood pressure and my recommendation at this time would be to continue on his beta-mina. His blood pressure appears to be under much better control now. His creatinine has also improved with hydration. 3. Obesity and metabolic syndrome. He appears to have evidence of metabolic syndrome. Diet and exercise have been emphasized and he will also be continued on high intensity statin. Thank you for allowing me to participate in the care of your patient. Please don't hesitate to call if any issues arise
[2017-08-29 11:15] LABS: Bedside Glucose 198 mg/dL (70-110)
--- NOTE | 2017-08-29 15:02 | CASEMGMT ---
Insurance review for possible cardiac intervention. According the [facility] provider search the following facilities are in-network (not limited to these): [facility] For further information, contact case management.
--- NOTE | 2017-08-29 15:51 | PN_ITS ---
Subjective: Patient seen and examined. Denies further significant chest pain. Does complain of chest discomfort with cough. He states he has had a nonproductive cough for approximately 2 weeks which she feels is allergy related. Denies other complaints. Spent significant time with patient discussing diabetic education. - Physical Exam General: Alert, Oriented x3, Cooperative, No apparent distress HEENT: Atraumatic, PERRLA, EOMI, Normocephalic Neck: Supple, No JVD, Negative Carotid Bruits Lungs: Clear to auscultation, Normal air movement Cardiovascular: Regular rate, Regular Rhythm, Normal S1, Normal S2, No murmurs Abdomen: Bowel Sounds Present, Soft, Non Tender, Non-Distended, Obese Extremities: No clubbing, No cyanosis, No edema, Capillary Refill Less than 3 Seconds Skin: No rashes Musculoskeletal: No Tenderness to Palpation of Joints or Extremities Neurological: Cranial nerves II-XII grossly intact, Neuro grossly intact Psych/Mental Status: Normal Affect, Appropriate Vital Signs Temp Pulse Resp BP Pulse Ox 98.1 F 80 16 134/74 H 98 08/29/17 14:45 08/29/17 15:05 08/29/17 14:45 08/29/17 14:45 08/29/17 14:45 Oxygen Delivery Method Room Air Intake and Output for Last 24 Hours 08/27/17 08/28/17 08/29/17 23:59 23:59 23:59 Intake Total 2247 / 4170 1409 / 1409 Balance 2247 / 4170 1409 / 1409 Laboratory Tests Past 24 Hrs 08/29/17 06:05 Sodium 141 Potassium 3.7 Chloride 107 Carbon Dioxide 25.0 Anion Gap 9 BUN 23 H Creatinine 1.52 H Estim Creat Clear Calc 49.10 Est GFR (MDRD) Af Amer 60 Est GFR (MDRD) Non-Af 49 L BUN/Creatinine Ratio 15.1 Glucose 169 H Calcium 8.2 L POC Glucose 08/29/17 08/29/17 08/28/17 10:59 06:42 21:09 POC Glucose 198 H 154 H 177 H 08/28/17 16:38 POC Glucose 143 H Medical Necessity - Tobacco Use Smoking Status: Never smoker Assessment/Plan 1. Chest pressure/chest tightness-EKG in ER with T wave inversion. Dr. Paz consulted. Troponin negative. Echo shows EF 60%, mild stage I diastolic dysfunction, mild tricuspid valve insufficiency, pulmonary artery systolic pressure 32 mmHg. Patient will undergo cardiac catheterization Wednesday, . Continue aspirin, statin, Plavix, beta-mina. Continue morphine and nitro as needed for chest pain. 2. CAD s/p single vessel bypass 2014- continue asa, statin, beta mina. 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 3. CKD stage III-baseline creatinine 1.6-1.9. Gently IVF. Trend BMP. Creatinine currently 1.52. No acute kidney injury. 4. HTN- stable, continue current regimen. 5. HLD- continue statin. 6. Elevated glucose- Glucose on admission 275. HA1C 8.0. Nutrition/dietitian consult for diabetes education. Josh WADES with SSI novolog. Recommend patient be discharged on Jardiance 10 mg once daily with further adjustment as outpatient. He will also need discharged with glucose testing monitor and supplies. 7. GERD- continue PPI. DVT prophylaxis- Heparin SC This patient was seen by MARISOL Santiago under the supervision of Dr. Simpson.
[2017-08-29] MEDS: Acetaminophen 325 MG Tablet 650 MG PO (16:25)
[2017-08-29 16:26] LABS: Bedside Glucose 138 mg/dL (70-110)
[2017-08-29 22:30] LABS: Bedside Glucose 145 mg/dL (70-110)
[2017-08-30] VITALS (17 sets, daily range): BP systolic 102–151; BP diastolic 61–84; PULSE 62–77; RESP 16–20; TEMP 36.4–36.9; O2SAT 95–98
[2017-08-30 05:34] LABS: Absolute Lymphocyte Count 1.76 X10^3/ul (0.83-4.51); Absolute Neutrophil Count 3.3 X10^3/uL (2.0-7.7); Basophil# 0.05 X10^3/uL; Basophil% 0.8 % (0-1); Eosinophil# 0.52 X10^3/uL; Eosinophils% 8.5 % (0-5); Hematocrit 45.2 % (40-54); Hemoglobin 15.5 g/dl (13.0-16.5); Lymphocyte # 1.76 X10^3/ul (4.0); Lymphocyte % 28.6 % (19-41); Mean Corp Hgb Conc 34.3 g/gl (32-36); Mean Corpuscular Volume 84.6 fL (80-94); Mean Platelet Vol. 9.8 fl (6.2-12.0); Monocyte# 0.51 X10^3/uL; Monocyte% 8.3 % (0-10); Neutrophil # 3.27 X10^3/uL (2.7-7.7); Neutrophil % 53.1 % (47-70); Platelet Count 134 K/mm3 (150-450); RBC Distribution Width CV 14.7 % (11.6-14.6); Red Blood Count 5.34 M/mm3 (4.6-6.2); White Blood Count 6.2 K/mm3 (4.4-11.0)
[2017-08-30] MEDS: Metoprolol Tartrate 25 MG Tablet 12.5 MG PO ×2 (05:38→09:28)
[2017-08-30] MEDS: Aspirin 81 MG TAB.CHEW PO (05:38)
[2017-08-30] MEDS: Clopidogrel Bisulfate 75 MG Tablet PO (05:38)
[2017-08-30 05:41] LABS: Anion Gap 10 (5-15); BUN 20 mg/dL (7-18); Calcium,Total 8.5 mg/dL (8.5-10.1); Chloride 107 mmol/L (98-107); Creatinine, Serum 1.66 mg/dL (0.70-1.30); EST Glomerular Filtration Rate 44 mL/min (>60); Est Glom Filt Rate - Afr Amer 54 mL/min (>60); Estimated Creatinine Clearance 44.96 ml/min; Glucose 138 mg/dL (74-106); POSITIVE COUNT NO; POSITIVE DIFFERENTIAL NO; POSITIVE MORPHOLOGY NO; Potassium 3.9 mmol/L (3.5-5.1); Sodium Level 141 mmol/L (136-145)
[2017-08-30 05:53] LABS: International Normalized Ratio 0.9; Prothrombin Time (Protime)PT. 12.6 SECONDS (11.7-14.9)
[2017-08-30 05:54] LABS: Partial Thromboplast Time 29.5 Seconds (24.1-36.2)
--- NOTE | 2017-08-30 05:55 | EKG12_ITS ---
Test Reason : AM EKG Blood Pressure : / mmHG Vent. Rate : 073 BPM Atrial Rate : 073 BPM P-R Int : 164 ms QRS Dur : 096 ms QT Int : 420 ms P-R-T Axes : 038 -22 047 degrees QTc Int : 462 ms Normal sinus rhythm Normal ECG When compared with ECG of 27-AUG-2017 11:10, MANUAL COMPARISON REQUIRED, DATA IS UNCONFIRMED Confirmed by PARK RIVERA, KILLIAN ([id number]), photo editor LARISSA MINOR ([id number]) on 08/31/2017 1:39:54 PM Referred By: SKYLAR Confirmed By:KILLIAN NICK MD
[2017-08-30 06:49] LABS: Bacteria 0 SEEN /hpf (None Seen); Mucous, Urine 0 SEEN /hpf (<or=2+); Red Blood Cells-Urine 0 SEEN /hpf (0-5); Squamous Epithelial Cells - UA 0 SEEN /hpf (0-5); White Blood Cells 0 SEEN /hpf (0-5)
[2017-08-30 06:50] LABS: Color, Urine Yellow (Yellow); Glucose, Dipstick 1000 mg/dl (Normal); Ketone-Dipstick Negative (Negative); Leukocyte Esterase-Dipstick Negative /ul (Negative); Nitrite-Dipstick Negative (Negative); Occult Blood-Urine Negative /ul (Negative); Protein-Dipstick Negative (Negative); Urine Bilirubin Dipstick Negative (Negative); Urine Clarity Clear (Clear); Urine Urobilinogen Normal (Normal); Urine pH 6.5 (5.0 - 8.0)
--- NOTE | 2017-08-30 06:56 | NURSING ---
report called to cardiovascular lab director. okay to send patient down.
[2017-08-30] MEDS: 0.9% Normal Saline 1,000 ML 100 ML IV (06:59)
[2017-08-30 07:05] LABS: Bedside Glucose 143 mg/dL (70-110)
--- NOTE | 2017-08-30 08:02 | PN.CARD_ITS ---
Subjectve: Patient seen and evaluated. He underwent cardiac catheterization today. Objective: Vital Signs Temp Pulse Resp BP Pulse Ox 97.9 F 72 18 151/84 H 97 08/30/17 05:32 08/30/17 06:59 08/30/17 05:32 08/30/17 05:38 08/30/17 05:32 Oxygen Delivery Method Room Air Intake and Output for Last 24 Hours 08/28/17 08/29/17 08/30/17 23:59 23:59 23:59 Intake Total 2247 / 4170 3349 / 3349 569 / 569 Balance 2247 / 4170 3349 / 3349 569 / 569 General: Awake, Alert, Oriented x 3 HEENT: PERRL, EOMI, Sclera Non Icteric Neck: Supple, Good ROM, No Lymph Node Enlargement Lungs: Clear to auscultation Cardiovascular: Regular Rhythm, Normal S1, Normal S2, No Murmurs, No Rubs, No Gallops Vascular: No Carotid Bruits, Normal Femoral Pulses, Normal Radial Pulses, Normal Dorsalis Pedal Pulse, Normal Posterior Tibial Pulses Abdomen: Bowel Sounds Present, Soft, Non Tender, No HSM, No Organomegaly Extremities: No Cyanosis, No Clubbing, No edema Neurological: No Focal Motor or Sensory Deficit 08/29/17 06:05: Sodium 141, Potassium 3.7, Chloride 107, Carbon Dioxide 25.0, Anion Gap 9, BUN 23 H, Creatinine 1.52 H, Est GFR (MDRD) Af Amer 60, Est GFR ( MDRD) Non-Af 49 L, BUN/Creatinine Ratio 15.1, Glucose 169 H, Calcium 8.2 L 08/30/17 05:10: Sodium 141, Potassium 3.9, Chloride 107, Carbon Dioxide 24.0, Anion Gap 10, BUN 20 H, Creatinine 1.66 H, Est GFR (MDRD) Af Amer 54 L, Est GFR (MDRD) Non-Af 44 L, BUN/Creatinine Ratio 12.0, Glucose 138 H, Calcium 8.5 08/30/17 05:10: WBC 6.2, RBC 5.34, Hgb 15.5, Hct 45.2, MCV 84.6, MCH 29.0, MCHC 34.3, RDW 14.7 H, RDW Differential 45.0 H, Plt Count 134 L, MPV 9.8, Immature Gran % (Auto) 0.700, Neut % (Auto) 53.1, Lymph % (Auto) 28.6, [place] % (Auto) 8.3 , Eos % (Auto) 8.5 H, Baso % (Auto) 0.8, Absolute Neuts (auto) 3.3, Total Counted Not Reportable 08/30/17 05:10: PT 12.6, INR 0.9, APTT 29.5 08/30/17 05:32: Urine Color Yellow, Urine Clarity Clear, Urine pH 6.5, Ur Specific [place] 1.010, Urine Protein Negative, Urine Glucose (UA) 1000 H, Urine Ketones Negative, Urine Occult Blood Negative, Urine Nitrite Negative, Urine Bilirubin Negative, Urine Urobilinogen Normal, Ur Leukocyte Esterase Negative, Urine RBC 0 SEEN, Urine WBC 0 SEEN Rhythm: EKG: ECHO: Stress Test: Cardiac Cath: PCI: CT Surgery: Holter monitor: EPS: PPM: CXR: Chest CT Scan: Medical Necessity - Tobacco Use Smoking Status: Never smoker Assessment/Plan 1. Chest pain. He presents with chest discomfort which is concerning for angina. He does have risk factors of obesity previous coronary bypass surgery hypertension and with his size as well as his EKG changes at baseline I would prefer us to utilize any invasive approach rather than stress testing. He underwent a cardiac catheterization this morning which demonstrated the following: Normal left main coronary artery. Left anterior descending artery with proximal 70% stenosis. Left circumflex artery with no significant disease. Dominant right coronary artery with no significant disease. Left internal mammary artery to the left anterior descending artery which is patent. It appears that he is well revascularized and therefore I would recommend continued aggressive medical therapy. He will be placed on beta-mina with metoprolol 25 mg twice a day as well as Norvasc 5 mg a day. 2. Hypertension He appears to have elevated blood pressure and my recommendation at this time would be to continue on his beta-mina. His blood pressure appears to be under much better control now. His creatinine has also improved with hydration. Also add Norvasc 5 mg a day. 3. Obesity and metabolic syndrome. He appears to have evidence of metabolic syndrome. Diet and exercise have been emphasized and he will also be continued on high intensity statin. Patient can be discharged later today. Thank you for allowing me to participate in the care of your patient. Please don't hesitate to call if any issues arise
--- NOTE | 2017-08-30 08:07 | CL.D_ITS ---
Patient Name: CORINNE RAGLAND Study Date: 08/30/2017 Performing: Jesús Paz MD Ht: 68.89 inches 175 cm : 1950 Wt: 260.15 lbs 118 kg Age: 66 Gender: male BSA: 2.31 PROCEDURE(S) PERFORMED [id number] CLINICAL PROFILE AND INDICATIONS INDICATIONS: 66-year-old man with a history of chest pain. Stress/Imaging Stress/Image Study Performed: No CAD Presentations: Unstable angina. CONCLUSIONS Single vessel coronary artery disease with proximal LAD and a patent left internal mammary artery to the left ant descending RECOMMENDATIONS Medical therapy DESCRIPTION OF PROCEDURE The patient arrived to the procedure lab. The risks and benefits of the procedure as well as a full d escription of our services here and current unavailability of surgical backup were fully explained to the patient and/or their significant other prior to the catheterization. The Timeout was completed, verifying the correct patient and procedure. The patient's procedural site was prepped and draped in the usual fashion. Local anesthetic was given subcutaneously to right groin region with Lidocaine 2%. Using a modified Seldinger technique, arterial access was obtained via the right femoral artery, a 5 Fr sheath was inserted. Left Coronary Artery selective angiography was performed in multiple views u sing a 5 Fr. JL 5 catheter. Right Coronary Artery selective angiography was then performed in multipl e views using a 5 Fr. 3DRC (Willard) catheter. Left internal mammary artery graft to the LAD selecti ve angiography was performed in multiple views using a 5 Fr. 3DRC (Willard) catheter. Left internal mammary artery graft to the LAD selective angiography was performed in multiple views using a 5 Fr. I M catheter.The arterial sheath was pulled and manual compression applied until hemostasis is achieved . CORONARY ANGIOGRAPHY DOMINANCE: Right Dominant LEFT HEART ASSESSMENT Left Ventricular Ejection Fraction: by Echo 60 % Normal LV wall motion Normal Left Ventricular systolic function LEFT MAIN: Angiographically normal LEFT ANTERIOR DECENDING ARTERY: PROX LAD: 70 % Stenosis CIRCUMFLEX ARTERY: Angiographically normal RIGHT CORONARY ARTERY: Angiographically normal GRAFTS: PARISI graft to the Mid LAD is patent COMPLICATIONS No Complications PROCEDURE MEDICATIONS Versed 1 mg IV Versed 1 mg IV Fentanyl 50 mcg IV Oxygen: 2 L/min via nasal cannula SUMMARY OF HEMODYNAMIC DATA Time AIR REST ECG 07:18:40 AO 150/81 (112) SA 07:42:00 Signed By Jesús Paz MD On 08/30/2017 08:06:38 Jesús Paz MD
--- NOTE | 2017-08-30 09:22 | CASEMGMT ---
According to [facility] website, the following are in-network tertiary facilities: [facility], [place], [facility], [facility], [facility], [facility], and . Hayley OQUENDO CM
[2017-08-30] MEDS: Atorvastatin Calcium 40 MG Tablet PO (09:28)
[2017-08-30] MEDS: Empagliflozin 10 MG Tablet PO (09:28)
[2017-08-30] MEDS: amLODIPine 5 MG Tablet PO (09:29)
[2017-08-30] MEDS: Pantoprazole Sodium 40 MG Tablet PO (09:29)
--- NOTE | 2017-08-30 11:25 | DCINST_ITS ---
- Discharge Diagnoses Current Active Problems: Current Active and Chronic Problems Chronic kidney disease (Chronic) CAD (coronary artery disease) (Chronic) HTN (hypertension) (Chronic) HLD (hyperlipidemia) (Chronic) GERD (gastroesophageal reflux disease) (Chronic) You will use the following diet at home:: Calorie/Carbohydrate Controlled ( specify 1200, 1400, etc), Cardiac Discharge Activity: - - Follow post-op cath instructions. Call your doctor if your incision/area has: Continuous Slow Oozing, Sudden Increased Bleeding, Increased Pain/ Swelling, Increased Redness, Foul Smelling Discharge, Swelling at the incision site Call your doctor if you observe: Fever of 101 or Higher, Shortness of breath, Dizziness, Fainting spells, Chest pain, Increased palpitations (irregular heartbeat) Instructions: How to Check Your Blood Sugar, Diabetes: Understanding Carbohydrates Additional Instructions: Recommend checking your blood sugar twice daily, morning and night and recording findings. Take these results to follow up appointment. Allergies/Adverse Reactions: Allergies No Known Allergies Allergy (Verified 08/27/17 11:08) Medications to take at Discharge Aspirin [Aspirin, Baby] 81 mg PO DAILY@0800 08/27/17 Atorvastatin Calcium [Lipitor] 40 mg PO DAILY 08/27/17 Omeprazole 40 mg PO DAILY 08/27/17 Amlodipine [Norvasc] 5 mg PO DAILY #30 tab 08/30/17 Empagliflozin [Jardiance] 10 mg PO DAILY #30 tab 08/30/17 Metoprolol Tartrate [Lopressor (beta mina)] 25 mg PO BID #60 tab 08/30/17 The following prescriptions were given: Amlodipine [Norvasc] 5 mg PO DAILY #30 tab Empagliflozin [Jardiance] 10 mg PO DAILY #30 tab Metoprolol Tartrate [Lopressor (beta mina)] 25 mg PO BID #60 tab Primary Care Physician: Serenity Ibanez,Out of [Primary Care Provider] - Please follow up with your Primary Care Physician in: 1 Week Please Follow Up With: Cecelia Posadas NP-C - Endocrinology When: 1-2 Weeks, establish care for diabetes management. Proposed Discharge Date: 08/30/17
--- NOTE | 2017-08-30 11:28 | CASEMGMT ---
SW took patient a list of primary care doctors per Nurse Practitioners request. Kristal VARGAS MSW
--- NOTE | 2017-08-30 11:53 | PCM.DC.SUM ---
Discharge Date and Diagnosis Date of Admission: 08/27/17 Date of Discharge: 08/30/17 - Primary Discharge Diagnosis 1. Chest pressure/tightness-ACS ruled out. 2. New diagnosis type 2 diabetes mellitus - Secondary Discharge Diagnosis Chronic Problems Chronic kidney disease (Chronic) CAD (coronary artery disease) (Chronic) HTN (hypertension) (Chronic) HLD (hyperlipidemia) (Chronic) GERD (gastroesophageal reflux disease) (Chronic) Hospital Course and Treatment Imaging Results: Diagnostic Data Chest X-Ray 08/27/17 11:35 IMPRESSION: No acute cardiopulmonary pathology. Electronically Signed: Robert Gagnon MD at 11:59 EDT , Service support , Dr. Paz- Cardiology Operations: None Procedures: 2-D Echocardiogram, Stress test Summary of Care Provided: Patient is a 66-year-old male admitted 08/27/2017 due to chest pressure, tightness. He has a past medical history of CAD status post single-vessel bypass in 2014, chronic kidney disease stage III, hypertension, hyperlipidemia, GERD. 1. Chest pressure/chest tightness-EKG in ER with T wave inversion. Dr. Paz consulted. Troponin negative. Echo shows EF 60%, mild stage I diastolic dysfunction, mild tricuspid valve insufficiency, pulmonary artery systolic pressure 32 mmHg. He will continue aspirin, statin, beta-mina at discharge. He underwent cardiac catheterization which demonstrated: Normal left main coronary artery. Left anterior descending artery with proximal 70% stenosis. Left circumflex artery with no significant disease. Dominant right coronary artery with no significant disease. Left internal mammary artery to the left anterior descending artery which is patent. Patient will continue medical management as noted above. 2. CAD s/p single vessel bypass 2014- continue asa, statin, beta mina. 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 3. CKD stage III-baseline creatinine 1.6-1.9. No acute kidney injury. Patient's creatinine is baseline at discharge. 4. HTN- stable, patient will be discharged on metoprolol 25 mg twice daily and amlodipine 5 mg daily. His home hydrochlorothiazide was discontinued. 5. HLD- continue statin. 6. Diagnosis type 2 diabetes mellitus- HA1C 8.0. Patient be discharged on Jardiance 10 mg once daily with further adjustment as outpatient. He was instructed to check his blood sugar twice daily, morning and night and document findings to report to endocrinology. Patient will follow-up with FREDDIE posadas in 1-2 weeks. 7. GERD- continue PPI. If patient continues to have chest burning, recommend increasing PPI as outpatient. General: Alert, Oriented x3, Cooperative, No apparent distress HEENT: Atraumatic, PERRLA, EOMI, Normocephalic Neck: Supple, No JVD, Negative Carotid Bruits Lungs: Clear to auscultation, Normal air movement Cardiovascular: Regular rate, Regular Rhythm, Normal S1, Normal S2, No murmurs Abdomen: Bowel Sounds Present, Soft, Non Tender, Non-Distended, Obese Extremities: No clubbing, No cyanosis, No edema, Capillary Refill Less than 3 Seconds Skin: No rashes Musculoskeletal: No Tenderness to Palpation of Joints or Extremities Neurological: Cranial nerves II-XII grossly intact, Neuro grossly intact Psych/Mental Status: Normal Affect, Appropriate Patient seen and examined prior to discharge. Physical assessment as noted above. Patient stable for discharge home with follow-up recognition's as noted above. This patient was seen by MARISOL Santiago under the supervision of Dr. Knight. Discharge Diet: Low fat/ Low Cholesterol, Carb Control Diet Discharge Activity: - - Follow post-op cath instructions. Call your doctor if your incision/area has: Continuous Slow Oozing, Sudden Increased Bleeding, Increased Pain/ Swelling, Increased Redness, Foul Smelling Discharge, Swelling at the incision site Call your doctor if you observe: Fever of 101 or Higher, Shortness of breath, Dizziness, Fainting spells, Chest pain, Increased palpitations (irregular heartbeat) Home Medications: Medications to take at Discharge Aspirin [Aspirin, Baby] 81 mg PO DAILY@0800 08/27/17 Atorvastatin Calcium [Lipitor] 40 mg PO DAILY 08/27/17 Omeprazole 40 mg PO DAILY 08/27/17 Amlodipine [Norvasc] 5 mg PO DAILY #30 tab 08/30/17 Empagliflozin [Jardiance] 10 mg PO DAILY #30 tab 08/30/17 Metoprolol Tartrate [Lopressor (beta mina)] 25 mg PO BID #60 tab 08/30/17 Following Prescrptions Were Given to Patient: Amlodipine [Norvasc] 5 mg PO DAILY #30 tab Empagliflozin [Jardiance] 10 mg PO DAILY #30 tab Metoprolol Tartrate [Lopressor (beta mina)] 25 mg PO BID #60 tab Primary Care Physician: Serenity bIanez,Out of [Primary Care Provider] - Please follow up with your Primary Care Physician in: 1 Week Please Follow Up With: Cecelia Posadas NP-C - Endocrinology When: 1-2 Weeks, establish care for diabetes management. Patient Instructions: How to Check Your Blood Sugar, Diabetes: Understanding Carbohydrates Disposition: Home Minutes spent on discharge:: 35 Patient Condition:: Stable Medical Necessity - Tobacco Use Smoking Status: Never smoker Meaningful Use Info Meaningful Use Diagnoses (Choose all that apply): None applicable
--- NOTE | 2017-08-30 12:06 | DS.PCM_ITS ---
Discharge Date and Diagnosis Date of Admission: 08/27/17 Date of Discharge: 08/30/17 - Primary Discharge Diagnosis 1. Chest pressure/tightness-ACS ruled out. 2. New diagnosis type 2 diabetes mellitus - Secondary Discharge Diagnosis Chronic Problems Chronic kidney disease (Chronic) CAD (coronary artery disease) (Chronic) HTN (hypertension) (Chronic) HLD (hyperlipidemia) (Chronic) GERD (gastroesophageal reflux disease) (Chronic) Hospital Course and Treatment Imaging Results: Diagnostic Data Chest X-Ray 08/27/17 11:35 IMPRESSION: No acute cardiopulmonary pathology. Electronically Signed: Robert Gagnon MD at 11:59 EDT , Service support , Dr. Paz- Cardiology Operations: None Procedures: 2-D Echocardiogram, Stress test Summary of Care Provided: Patient is a 66-year-old male admitted 08/27/2017 due to chest pressure, tightness. He has a past medical history of CAD status post single-vessel bypass in 2014, chronic kidney disease stage III, hypertension, hyperlipidemia, GERD. 1. Chest pressure/chest tightness-EKG in ER with T wave inversion. Dr. Paz consulted. Troponin negative. Echo shows EF 60%, mild stage I diastolic dysfunction, mild tricuspid valve insufficiency, pulmonary artery systolic pressure 32 mmHg. He will continue aspirin, statin, beta-mina at discharge. He underwent cardiac catheterization which demonstrated: Normal left main coronary artery. Left anterior descending artery with proximal 70% stenosis. Left circumflex artery with no significant disease. Dominant right coronary artery with no significant disease. Left internal mammary artery to the left anterior descending artery which is patent. Patient will continue medical management as noted above. 2. CAD s/p single vessel bypass 2014- continue asa, statin, beta mina. Follows with [facility]r [employer] in [place]. 3. CKD stage III-baseline creatinine 1.6-1.9. No acute kidney injury. Patient' s creatinine is baseline at discharge. 4. HTN- stable, patient will be discharged on metoprolol 25 mg twice daily and amlodipine 5 mg daily. His home hydrochlorothiazide was discontinued. 5. HLD- continue statin. 6. Diagnosis type 2 diabetes mellitus- HA1C 8.0. Patient be discharged on Jardiance 10 mg once daily with further adjustment as outpatient. He was instructed to check his blood sugar twice daily, morning and night and document findings to report to endocrinology. Patient will follow-up with FREDDIE posadas in 1- 2 weeks. 7. GERD- continue PPI. If patient continues to have chest burning, recommend increasing PPI as outpatient. General: Alert, Oriented x3, Cooperative, No apparent distress HEENT: Atraumatic, PERRLA, EOMI, Normocephalic Neck: Supple, No JVD, Negative Carotid Bruits Lungs: Clear to auscultation, Normal air movement Cardiovascular: Regular rate, Regular Rhythm, Normal S1, Normal S2, No murmurs Abdomen: Bowel Sounds Present, Soft, Non Tender, Non-Distended, Obese Extremities: No clubbing, No cyanosis, No edema, Capillary Refill Less than 3 Seconds Skin: No rashes Musculoskeletal: No Tenderness to Palpation of Joints or Extremities Neurological: Cranial nerves II-XII grossly intact, Neuro grossly intact Psych/Mental Status: Normal Affect, Appropriate Patient seen and examined prior to discharge. Physical assessment as noted above. Patient stable for discharge home with follow-up recognition's as noted above. This patient was seen by MARISOL Santiago under the supervision of Dr. Knight. Discharge Diet: Low fat/ Low Cholesterol, Carb Control Diet Discharge Activity: - - Follow post-op cath instructions. Call your doctor if your incision/area has: Continuous Slow Oozing, Sudden Increased Bleeding, Increased Pain/ Swelling, Increased Redness, Foul Smelling Discharge, Swelling at the incision site Call your doctor if you observe: Fever of 101 or Higher, Shortness of breath, Dizziness, Fainting spells, Chest pain, Increased palpitations (irregular heartbeat) Home Medications: Medications to take at Discharge Aspirin [Aspirin, Baby] 81 mg PO DAILY@0800 08/27/17 Atorvastatin Calcium [Lipitor] 40 mg PO DAILY 08/27/17 Omeprazole 40 mg PO DAILY 08/27/17 Amlodipine [Norvasc] 5 mg PO DAILY #30 tab 08/30/17 Empagliflozin [Jardiance] 10 mg PO DAILY #30 tab 08/30/17 Metoprolol Tartrate [Lopressor (beta mina)] 25 mg PO BID #60 tab 08/30/17 Following Prescrptions Were Given to Patient: Amlodipine [Norvasc] 5 mg PO DAILY #30 tab Empagliflozin [Jardiance] 10 mg PO DAILY #30 tab Metoprolol Tartrate [Lopressor (beta mina)] 25 mg PO BID #60 tab Primary Care Physician: Serenity Ibanez,Out of [Primary Care Provider] - Please follow up with your Primary Care Physician in: 1 Week Please Follow Up With: Cecelia Posadas NP-C - Endocrinology When: 1-2 Weeks, establish care for diabetes management. Patient Instructions: How to Check Your Blood Sugar, Diabetes: Understanding Carbohydrates Disposition: Home Minutes spent on discharge:: 35 Patient Condition:: Stable Medical Necessity - Tobacco Use Smoking Status: Never smoker Meaningful Use Info Meaningful Use Diagnoses (Choose all that apply): None applicable
--- NOTE | 2017-08-30 13:30 | NURSING ---
Bedrest complete, walked pt in hallway. Tolerated well, no hematoma noted. Dressing c/d/i. Okay to d/c per amy. Teaching completed. at bedside.
--- NOTE | 2017-08-30 13:30 | NURSING ---
Reviewed and agreed on all charting with Kevyn Garcia RN
== END 2017-08-30 13:47 | disposition home or self-care (01) | DRG 287 ==
LOC: ED 13:31 → PCU 13:39
PROVIDERS: Internal Medicine Cardiovascular Disease; Nurse Practitioner Family; Admitting Provider Internal Medicine; Emergency Provider Emergency Medicine; Visit Provider Internal Medicine
DX: R07.89 Other chest pain (principal); E11.22 Type 2 diabetes mellitus with diabetic chronic kidney disease; E88.81 Metabolic syndrome and other insulin resistance; N18.3 Chronic kidney disease, stage 3 (moderate); I12.9 Hypertensive chronic kidney disease with stage 1 through stage 4 chronic kidney disease, or unspecified chronic kidney disease; E78.00 Pure hypercholesterolemia, unspecified; E66.9 Obesity, unspecified; K21.9 Gastro-esophageal reflux disease without esophagitis; Z68.39 Body mass index [BMI] 39.0-39.9, adult; Z79.899 Other long term (current) drug therapy; Z79.82 Long term (current) use of aspirin
CPT/HCPCS: 36415; 71045; 80048; 81001; 82962; 83036; 84484; 85025; 85610; 85730; 93005; 93306; 93455; 97802; 99152; 99153; 99285; J3010; J7030; Q9957; Q9967; A4216; C1769; C1894; C8929

== ENCOUNTER → 2017-12-15 08:39 | Outpatient (CLI) | payer BC, SELFPAY ==
[2017-12-15 09:53] LABS: ALB/GLOB Ratio 1.2 RATIO (0.9-2.4); AST(SGOT) 27 U/L (15-37); Alanine Aminotransfer ALT/SGPT 39 U/L (16-61); Alkaline Phosphatase 122 U/L (45-117); Anion Gap 7 (5-15); BUN 27 mg/dL (7-18); BUN/Creat Ratio 13.9 RATIO (10-20); Calcium,Total 9.5 mg/dL (8.5-10.1); Chloride 109 mmol/L (98-107); Creatinine, Serum 1.94 mg/dL (0.70-1.30); EST Glomerular Filtration Rate 37 mL/min (>60); Est Glom Filt Rate - Afr Amer 45 mL/min (>60); Globulin 3.3 g/dL (2.2-4.2); Glucose 115 mg/dL (74-106); Potassium 4.9 mmol/L (3.5-5.1); Protein, Total 7.3 g/dL (6.4-8.2); Sodium Level 144 mmol/L (136-145)
[2017-12-15 10:18] LABS: Microalbumin,Random Urine 46.4 mg/L (NO RANGE EST.); Microalbumin:Creatinine Ratio 16.9 mg/g CRE (<30 mg/g CRE)
[2017-12-15 10:30] LABS: Hemoglobin A1c 6.5 % (4.2-6.3)
== END ==
PROVIDERS: Family Provider Internal Medicine; PCP Internal Medicine; Visit Provider Nurse Practitioner Family
DX: E11.22 Type 2 diabetes mellitus with diabetic chronic kidney disease (principal); N18.9 Chronic kidney disease, unspecified
CPT/HCPCS: 36415; 80053; 82043; 82570; 83036

== ENCOUNTER → 2018-04-19 10:46 | Outpatient (CLI) | payer BC, SELFPAY ==
[2018-04-19 09:58] VITALS: BMI 36.6
[2018-04-19 11:27] LABS: Absolute Lymphocyte Count 1.95 X10^3/ul (0.83-4.51); Basophil# 0.08 X10^3/uL; Basophil% 1.3 % (0-1); Eosinophil# 0.57 X10^3/uL; Eosinophils% 9.1 % (0-5); Hematocrit 45.9 % (40-54); Lymphocyte # 1.95 X10^3/ul (4.0); Lymphocyte % 31.2 % (19-41); Mean Corp Hgb Conc 34.9 g/gl (32-36); Mean Corpuscular Hgb 29.7 pg (27.0-32.0); Mean Corpuscular Volume 85.2 fL (80-94); Mean Platelet Vol. 10.2 fl (6.2-12.0); Monocyte# 0.63 X10^3/uL; Monocyte% 10.1 % (0-10); Neutrophil # 2.99 X10^3/uL (2.7-7.7); Neutrophil % 47.7 % (47-70); Platelet Count 187 K/mm3 (150-450); RBC Distribution Width CV 14.1 % (11.6-14.6); RBC Distribution Width SD 43.2 fl (35.1-43.9); Red Blood Count 5.39 M/mm3 (4.6-6.2); White Blood Count 6.3 K/mm3 (4.4-11.0)
[2018-04-19 11:28] LABS: POSITIVE COUNT NO; POSITIVE DIFFERENTIAL NO; POSITIVE MORPHOLOGY NO
[2018-04-19 11:35] LABS: Hemoglobin A1c 6.1 % (4.2-6.3)
[2018-04-19 12:01] LABS: ALB/GLOB Ratio 1.2 RATIO (0.9-2.4); AST(SGOT) 23 U/L (15-37); Alanine Aminotransfer ALT/SGPT 33 U/L (16-61); Albumin, Serum 3.9 g/dL (3.2-5.0); Alkaline Phosphatase 116 U/L (45-117); Anion Gap 6 (5-15); BUN 21 mg/dL (7-18); BUN/Creat Ratio 13.2 RATIO (10-20); Calcium,Total 8.5 mg/dL (8.5-10.1); Chloride 109 mmol/L (98-107); Cholesterol 131 mg/dL (200); Creatinine, Serum 1.59 mg/dL (0.70-1.30); EST Glomerular Filtration Rate 47 mL/min (>60); Est Glom Filt Rate - Afr Amer 56 mL/min (>60); Globulin 3.2 g/dL (2.2-4.2); Glucose 112 mg/dL (74-106); High Density Lipoprotein 33 mg/dL; Protein, Total 7.1 g/dL (6.4-8.2); Sodium Level 142 mmol/L (136-145); Triglycerides 238 mg/dL; Very Low Density Lipoprotein 48 mg/dL (5-40)
[2018-04-20 09:16] LABS: PSA,Total - Annual Screen 1.44 ng/mL (0.00-4.00)
== END ==
PROVIDERS: Nurse Practitioner; Family Provider Internal Medicine; PCP Internal Medicine; Referring Provider Internal Medicine; Visit Provider Internal Medicine
DX: E11.9 Type 2 diabetes mellitus without complications (principal); I10 Essential (primary) hypertension; E78.5 Hyperlipidemia, unspecified; Z80.9 Family history of malignant neoplasm, unspecified; Z12.5 Encounter for screening for malignant neoplasm of prostate
CPT/HCPCS: 36415; 80053; 80061; 83036; 84153; 85025; G0103

== ENCOUNTER → 2018-07-20 11:32 | Outpatient (CLI) | payer BC, SELFPAY ==
[2018-07-20 11:04] VITALS: BMI 36.9
[2018-07-20 13:03] LABS: Cholesterol 141 mg/dL (200); High Density Lipoprotein 34 mg/dL; Triglycerides 226 mg/dL; Very Low Density Lipoprotein 45 mg/dL (5-40)
== END ==
PROVIDERS: Family Provider Internal Medicine; PCP Internal Medicine; Visit Provider Nurse Practitioner Family
DX: E78.5 Hyperlipidemia, unspecified (principal)
CPT/HCPCS: 36415; 80061

== ENCOUNTER → 2019-01-17 | Outpatient (CLI) | payer BC, SELFPAY ==
[2019-01-17 09:14] VITALS: BMI 38.4
--- NOTE | 2019-01-17 10:24 | EKG12_ITS ---
Test Reason : ROUTINE Blood Pressure : / mmHG Vent. Rate : 075 BPM Atrial Rate : 075 BPM P-R Int : 168 ms QRS Dur : 096 ms QT Int : 412 ms P-R-T Axes : 049 -22 077 degrees QTc Int : 460 ms Normal sinus rhythm Moderate voltage criteria for LVH, may be normal variant Prolonged QT Poor R Wave Progression Abnormal ECG Confirmed by MILLICENT RIVERA, JAKOB ([id number]), photography editor REBECCA KENDALL ([id number]) on 01/19/2019 12:59:58 PM Referred By: Tata Higgins Confirmed By:JAKOB RICKS MD
[2019-01-17 12:22] LABS: Absolute Lymphocyte Count 1.66 X10^3/uL (0.83-4.51); Absolute Neutrophil Count 3.2 X10^3/uL (2.0-7.7); Basophil# 0.09 X10^3/uL; Basophil% 1.5 % (0-1); Eosinophil# 0.49 X10^3/uL; Hematocrit 51.4 % (40-54); Hemoglobin 16.9 g/dL (13.0-16.5); Lymphocyte # 1.66 X10^3/ul (4.0); Mean Corp Hgb Conc 32.9 g/dL (32-36); Mean Corpuscular Hgb 28.8 pg (27.0-32.0); Mean Corpuscular Volume 87.6 fL (80-94); Mean Platelet Vol. 10.5 fl (6.2-12.0); Monocyte# 0.66 X10^3/uL; Monocyte% 10.7 % (0-10); NRBC Flagged by Analyzer 0 % (0-5); Platelet Count 185 K/mm3 (150-450); RBC Distribution Width SD 46.5 fl (35.1-43.9); Red Blood Count 5.87 M/mm3 (4.6-6.2); White Blood Count 6.2 K/mm3 (4.4-11.0)
[2019-01-17 12:37] LABS: ALB/GLOB Ratio 1.1 RATIO (0.9-2.4); AST(SGOT) 30 U/L (15-37); Alanine Aminotransfer ALT/SGPT 38 U/L (16-61); Alkaline Phosphatase 99 U/L (45-117); Anion Gap 3 (5-15); BUN 32 mg/dL (7-18); BUN/Creat Ratio 18.3 RATIO (10-20); Calcium,Total 9.4 mg/dL (8.5-10.1); Chloride 110 mmol/L (98-107); Cholesterol 145 mg/dL (200); Creatinine, Serum 1.75 mg/dL (0.70-1.30); EST Glomerular Filtration Rate 42 mL/min (>60); Est Glom Filt Rate - Afr Amer 50 mL/min (>60); Globulin 3.5 g/dL (2.2-4.2); Glucose 127 mg/dL (74-106); High Density Lipoprotein 36 mg/dL; Potassium 4.6 mmol/L (3.5-5.1); Protein, Total 7.5 g/dL (6.4-8.2); Sodium Level 140 mmol/L (136-145); Triglycerides 208 mg/dL; Very Low Density Lipoprotein 42 mg/dL (5-40)
[2019-01-17 12:56] LABS: Microalbumin,Random Urine 64.6 mg/L (NO RANGE EST.); Microalbumin:Creatinine Ratio 45.2 mg/g CRE (<30 mg/g CRE)
== END | disposition home or self-care (01) ==
PROVIDERS: Family Provider Internal Medicine; PCP Internal Medicine; Referring Provider Internal Medicine; Visit Provider Internal Medicine
DX: Z00.00 Encounter for general adult medical examination without abnormal findings (principal); E11.9 Type 2 diabetes mellitus without complications; K21.9 Gastro-esophageal reflux disease without esophagitis; E78.5 Hyperlipidemia, unspecified; I10 Essential (primary) hypertension
CPT/HCPCS: 36415; 80053; 80061; 82043; 82570; 85025; 93005